=== PATIENT | female | born 1975 ===

== ENCOUNTER 2020-12-15 12:32 | Emergency (ER) | payer SELFPAY ==
[2020-12-15] MEDS ORDERED: diphenhydrAMINE 50 MG/ML SDV IVPUSH ONE (12:39)
[2020-12-15] MEDS ORDERED: methylPREDNISolone Sodium Succinate 125 MG/2 ML SDV IVPUSH ONE (12:39)
[2020-12-15] MEDS ORDERED: methylPREDNISolone Sodium Succinate 125 MG/2 ML SDV ONE (12:39)
[2020-12-15] MEDS ORDERED: diphenhydrAMINE 50 MG/ML SDV ONE (12:39)
--- NOTE | 2020-12-15 12:44 | PCM.EKG ---
#1 Interpretation EKG Date: 12/15/20 Time: 12:43 EKG Interpretation Comments: Normal sinus rhythm rate of 89 normal axis and intervals no acute ischemia QTC 431
[2020-12-15] MEDS ORDERED: Famotidine 20 MG/2 ML SDV IVPUSH STA (12:45)
--- NOTE | 2020-12-15 12:47 | EDM.PDOC ---
ED HPI GENERAL MEDICAL PROBLEM - General Chief Complaint: Allergic Reaction Stated Complaint: ALLERGIC REACTION Time Seen by Provider: 12/15/20 12:36 Source of Information: Reports: Patient History Limitations: Reports: No Limitations - History of Present Illness INITIAL COMMENTS - FREE TEXT/NARRATIVE: HISTORY AND PHYSICAL: History of present illness: Patient is a 45-year-old female who presents to the ED today with concern of hives that began 10 to 15 minutes prior to arrival to the emergency room. Patient states that she has had prior anaphylaxis so she came to the emergency room immediately to prevent this. Patient denies any throat, mouth, tongue, or lip swelling and states that at this time she is having hives and is itchy. Patient states she is also having some abdominal cramping which occurs with her hives nearly every time this happens. Patient states that she is referred to [facility] as they are unsure why she is having these reactions and states that she takes medications daily. Patient states that she is not on any steroids at this time. Patient denies fever, chills, chest pain, shortness of breath, or cough. Denies headache, neck stiff ness, change in vision, syncope, or near syncope. Denies nausea, vomiting, abdominal pain, diarrhea, constipation, or dysuria. Has not noted any blood in urine or stool. Patient has been eating and drinking appropriately. Review of systems: As per history of present illness and below otherwise all systems reviewed and negative. Past medical history: As per history of present illness and as reviewed below otherwise noncontributory. Surgical history: As per history of present illness and as reviewed below otherwise noncontributory. Social history: See social history for further information Family history: As per history of present illness and as reviewed below otherwise noncontributory. Physical exam: General: Patient is alert, oriented, and in no acute distress. Patient laying comfortably on exam table but anxious appearing. Vitals stable and reviewed by me. HEENT: No lip edema, tongue edema, or oropharyngeal edema. No stridor. Otherwise, atraumatic, normocephalic, pupils equal and reactive bilaterally, negative for conjunctival pallor or scleral icterus, mucous membranes moist, TMs normal bilaterally, throat clear, neck supple, nontender, trachea midline. No drooling or trismus noted. No meningeal signs. No hot potato voice noted. Lungs: Clear to auscultation, breath sounds equal bilaterally, chest nontender. Heart: S1S2, regular rate and rhythm without overt murmur Abdomen: Soft, nondistended, nontender. Negative for masses or hepatosplenomegaly. Negative for costovertebral tenderness. Pelvis: Stable nontender. Genitourinary: Deferred. Rectal: Deferred. Skin: Urticaria noted to the face. Otherwise, intact, warm, dry. No lesions or rashes noted. Extremities: Atraumatic, negative for cords or calf pain. Neurovascular unremarkable. Neuro: Awake, alert, oriented. Cranial nerves II through XII unremarkable. Cerebellum unremarkable. Motor and sensory unremarkable throughout. Exam nonfocal. Notes: On initial exam, patient does have urticaria noted to the left side of her face without any evidence of lip, tongue, or oropharyngeal edema. No stridor and breathing comfortably on exam. She does appear anxious but otherwise non toxic and well appearing. Patient continually reevaluated and remains vitally stable and comfortable on exam. Urticaria has now resolved and no longer visible. She expresses complete resolution of her symptoms and never has any occurrence of lip, tongue, oropharyngeal edema or stridor. Patient has an appointment with an tissue specialist at [facility] next month and discussed the importance for this follow up. Strict return precautions thoroughly discussed with patient. Voices understanding and is agreeable to plan of care. Denies any further questions or concerns at this time. Diagnostics: EKG Therapeutics: Solumedrol, Benadryl, Famotidine Prescription: Prednisone Impression: Urticaria Allergic reaction Plan: 1. Avoid triggers. Continue to monitor for possible exposures/triggers/foods. 2. While symptomatic continue to routinely take Benadryl 50mg every 4-6 hours and Zantac 150mg twice daily. Take medication as prescribed. 3. Carry your Epi-Pen with you at all times. Use in the case of an emergency and call 911 and/or present to the ER. 4. You may use topical calamine lotion, cool tempid oatmeal baths, Aveeno bath/lotions. 5. Please follow up with your Primary care provider and tissue specialist as discussed. Return to the ED as needed and as discussed. Definitive disposition and diagnosis as appropriate pending reevaluation and review of above. chest Pain Score (Numeric/FACES): 5 abdomen Pain Score (Numeric/FACES): 7 - Related Data Allergies Allergy/AdvReac Type Severity Reaction Status Date / Time metoclopramide Allergy Other Verified 12/15/20 13:34 Penicillins Allergy Hives Verified 12/15/20 12:50 dust Allergy Hives Uncoded 12/15/20 12:50 housemites Allergy Hives Uncoded 12/15/20 12:50 Home Meds: Home Meds EPINEPHrine [Epipen] 0.3 mg IM ASDIRECTED PRN 12/15/20 [History] Famotidine 20 mg PO BID 12/15/20 [History] Loratadine 10 mg PO DAILY 12/15/20 [History] metFORMIN [Glucophage XR] 500 mg PO BID 12/15/20 [History] predniSONE [Prednisone] 20 mg PO DAILY 5 Days #5 tablet 12/15/20 [Rx] ED ROS ALLERGIC REACTION - Review of Systems Review Of Systems: Comprehensive ROS is negative, except as noted in HPI. ED EXAM GENERAL NO PERIP PULSE - Physical Exam Exam: See Below (see dictation) Course - Vital Signs Last Recorded V/S: Last Vital Signs Temp 96.1 F L 12/15/20 12:34 Pulse 97 12/15/20 12:34 Resp 18 12/15/20 12:34 BP 183/99 H 12/15/20 12:34 Pulse Ox 100 12/15/20 12:34 - Orders/Labs/Meds Orders: Active Orders 24 hr Category Date Time Status Sodium Chloride 0.9% [Normal Saline] 1,000 ml Med 12/15/20 13:00 Active IV ASDIRECTED Medication Orders Sodium Chloride (Normal Saline) 1,000 mls @ 999 mls/hr IV ASDIRECTED MELONY Last Admin: 12/15/20 12:51 Dose: 999 mls/hr Documented by: HUSSAIN Meds: Medications Generic Name Dose Route Start Last Admin Trade Name Freq PRN Reason Stop Dose Admin Sodium Chloride 1,000 mls @ 999 mls/hr 12/15/20 13:00 12/15/20 12:51 Normal Saline IV 999 mls/hr ASDIRECTED MELONY Administration Discontinued Medications Generic Name Dose Route Start Last Admin Trade Name Freq PRN Reason Stop Dose Admin Diphenhydramine HCl 50 mg 12/15/20 12:39 12/15/20 12:45 Diphenhydramine 50 Mg/Ml Sdv IVPUSH 12/15/20 12:40 50 mg ONETIME ONE Administration Diphenhydramine HCl Confirm 12/15/20 12:39 12/15/20 12:48 Diphenhydramine 50 Mg/Ml Sdv Administered 12/15/20 12:40 Not Given Dose 50 mg .ROUTE .STK-MED ONE Famotidine 20 mg 12/15/20 12:45 12/15/20 12:52 Famotidine 20 Mg/2 Ml Sdv IVPUSH 12/15/20 12:46 20 mg NOW STA Administration Methylprednisolone Sodium Succinate 125 mg 12/15/20 12:39 12/15/20 12:45 Methylprednisolone Sodium Succinate 125 Mg/2 Ml Sdv IVPUSH 12/15/20 12:40 125 mg ONETIME ONE Administration Methylprednisolone Sodium Succinate Confirm 12/15/20 12:39 12/15/20 12:48 Methylprednisolone Sodium Succinate 125 Mg/2 Ml Sdv Administered 12/15/20 12:40 Not Given Dose 125 mg .ROUTE .STK-MED ONE Departure - Departure Time of Disposition: 14:14 Disposition: Home, Self-Care 01 Clinical Impression: Urticaria Allergic reaction Qualifiers: Encounter type: initial encounter Qualified Code(s): T78.40XA - Allergy, unspecified, initial encounter - Discharge Information Prescriptions: predniSONE [Prednisone] 20 mg PO DAILY 5 Days #5 tablet Forms: ED Department Discharge Additional Instructions: The following information is given to patients seen in the emergency department who are being discharged to home. This information is to outline your options for follow-up care. We provide all patients seen in our emergency department with a follow-up referral. The need for follow-up, as well as the timing and circumstances, are variable depending upon the specifics of your emergency department visit. If you don't have a primary care physician on staff, we will provide you with a referral. We always advise you to contact your personal physician following an emergency department visit to inform them of the circumstance of the visit and for follow-up with them and/or the need for any referrals to a consulting specialist. The emergency department will also refer you to a specialist when appropriate. This referral assures that you have the opportunity for follow-up care with a specialist. All of these measure are taken in an effort to provide you with optimal care, which includes your follow-up. Under all circumstances we always encourage you to contact your private physician who remains a resource for coordinating your care. When calling for follow-up care, please make the office aware that this follow-up is from your recent emergency room visit. If for any reason you are refused follow-up, please contact the [facility] Emergency Department at and asked to speak to the emergency department cecy andrews nurse. [facility] [address], [place] [address] [facility] [address] [place] [address] 1. Avoid triggers. Continue to monitor for possible exposures/triggers/foods. 2. While symptomatic continue to routinely take Benadryl 50mg every 4-6 hours and Zantac 150mg twice daily. Take medication as prescribed. 3. Carry your Epi-Pen with you at all times. Use in the case of an emergency and call 911 and/or present to the ER. 4. You may use topical calamine lotion, cool tempid oatmeal baths, Aveeno bath/lotions. 5. Please follow up with your Primary care provider and tissue specialist as discussed. Return to the ED as needed and as discussed. Sepsis Event Note (ED) - Evaluation Sepsis Screening Result: No Definite Risk - Focused Exam Vital Signs: Vital Signs Temp Pulse Resp BP Pulse Ox 12/15/20 12:34 96.1 F L 97 18 183/99 H 100 - My Orders Last 24 Hours: My Active Orders 12/15/20 13:00 Sodium Chloride 0.9% [Normal Saline] 1,000 ml IV ASDIRECTED - Assessment/Plan Last 24 Hours: My Active Orders 12/15/20 13:00 Sodium Chloride 0.9% [Normal Saline] 1,000 ml IV ASDIRECTED
[2020-12-15] MEDS ORDERED: Sodium Chloride 0.9% 1,000 ML IV SCH (13:00)
== END 2020-12-15 14:26 | disposition home or self-care (01) ==
LOC: MW.ED 12:32
DX: L50.0 Allergic urticaria (principal); Z88.8 Allergy status to other drugs, medicaments and biological substances; Z88.0 Allergy status to penicillin; Z91.038 Other insect allergy status; Z91.048 Other nonmedicinal substance allergy status; Z79.899 Other long term (current) drug therapy
CPT/HCPCS: 93005; 96374; 96375; 99283; J1200; J2930; J3490; J7030; 93010

== ENCOUNTER 2021-02-02 11:27 | Emergency (ER) | payer SELFPAY ==
[2021-02-02] MEDS ORDERED: diphenhydrAMINE 50 MG/ML SDV IVPUSH ONE (11:29)
[2021-02-02] MEDS ORDERED: Sodium Chloride 0.9% 1,000 ML IV ONE (11:29)
[2021-02-02] MEDS ORDERED: Famotidine 20 MG/2 ML SDV IVPUSH ONE (11:29)
[2021-02-02] MEDS ORDERED: methylPREDNISolone Sodium Succinate 125 MG/2 ML SDV ONE (11:30)
[2021-02-02] MEDS ORDERED: methylPREDNISolone Sodium Succinate 125 MG/2 ML SDV IVPUSH ONE (11:30)
[2021-02-02] MEDS ORDERED: Famotidine 20 MG/2 ML SDV ONE (11:30)
[2021-02-02] MEDS ORDERED: diphenhydrAMINE 50 MG/ML SDV ONE (11:30)
--- NOTE | 2021-02-02 11:44 | EDM.PDOC ---
ED HPI GENERAL MEDICAL PROBLEM - General Chief Complaint: Allergic Reaction Time Seen by Provider: 02/02/21 11:29 - History of Present Illness INITIAL COMMENTS - FREE TEXT/NARRATIVE: CHIEF COMPLAINT(S): Allergic reaction HISTORY OF PRESENT ILLNESS: This is a 45-year-old and with a past medical history of anaphylaxis and recent diagnosis of Leonard's thyroiditis who comes to the emergency department with a chief complaint of allergic reaction. The patient does not know any known triggers however approximately 20 minutes prior to arrival she started to experience a red rash to the left side of her body which was itchy and raised. She states that she did not have any throat swelling, tongue swelling, shortness of breath, stridor, drooling but states that she does feel some chest tightness. She describes the chest tightness as pressure located in the center of her chest. There is no radiation of this pressure. She denies any diaphoresis, nausea or vomiting. She denies any history of CAD or CHF. She denies any history of asthma or COPD. She states that she was seen at [facility] and they were unable to find out what is causing these reactions but she has not had any reactions in the last 2 months. REVIEW OF SYSTEMS: Constitutional: Denies fever, chills. Eyes: Denies eye pain Ears, Nose, Mouth, & Throat: Denies earache Cardiovascular: Positive for chest pressure. denies chest pain Respiratory: Denies shortness of breath Gastrointestinal: Denies Nausea, vomiting, diarrhea, hematochezia. Genitourinary: Denies hematuria Skin: Positive for itchy urticarial rash to the left side of her body MSK: Denies joint pain Neurological: Denies blurred vision Psychiatric: Denies depression PAST MEDICAL HISTORY: As per history of present illness and as reviewed below otherwise noncontributory. SURGICAL HISTORY: As per history of present illness and as reviewed below otherwise noncontributory. SOCIAL HISTORY: As per history of present illness and as reviewed below otherwise noncontributory. FAMILY HISTORY: As per history of present illness and as reviewed below otherwise noncontributory. EXAMINATION OF ORGAN SYSTEMS/BODY AREAS: Constitutional: Blood pressure, HR, RR, Temp General: Overall well-appearing woman who is in no acute distress Psychiatric: Appropriate mood and affect. Eyes: No scleral icterus or conjunctival erythema ENMT: Moist mucous membranes. No pharyngeal erythema no tongue swelling, uvular swelling. No trismus no drooling. No stridor. Cardiovascular: Regular, rate, and rhythm. No gallops, murmurs, or rubs. Bilateral upper extremity pulses symmetric and intact. No peripheral edema. No JVD. Respiratory: Lungs clear to auscultation bilaterally. No wheezes, rales, or rhonchi. No wheezing gastrointestinal: Soft, non-tender, non-distended. Normoactive bowel sounds Genitourinary: No suprapubic tenderness Musculoskeletal: Normal range of motion. Skin: There is a rash located on the left side of her face and left arm. There is no urticaria noted. Neurological: Alert, GCS 15 MEDICAL DECISION MAKING AND COURSE IN THE ED WITH INTERPRETATION/REVIEW OF DIAGNOSTIC STUDIES: This is a 45-year-old woman with a past medical history of anaphylaxis and history of Leonard's thyroiditis who comes to the emergency department with an acute itchy rash to the left side of her body associated with chest tightness. Given her history of anaphylaxis we will provide the patient with IV Solu-Medrol, famotidine, Benadryl. There is no throat or tongue swelling, no stridor and no wheezing I do not believe epinephrine is indicated at this time. We will place the patient on cardiac monitoring and pulse oximetry. Cardiac monitoring did reveal normal sinus rhythm not tachycardia and pulse oximetry with good waveform was appropriate. Given the chest pain and history of Leonard's thyroiditis we will obtain a cardiac work-up. Obtain a chest x-ray. EKG was obtained which did not reveal any acute signs of ischemia. PERC Rule Age (>/=50): No (0) HR (>/=100): No (0) SaO2 on RA <95%: No (0) Unilateral Leg Swelling: No (0) Hemoptysis: No (0) Surgery/Trauma in last month requiring general anesthesia: No (0) Prior PE or DVT: : No (0) Hormone Use: No (0) PERC negative Since patient is PERC negative and pre-test probability <15%, there is no need for more intensive workup, <2% chance of PE Heart Score History: Slightly or Non-Suspicious (0) ECG: Normal (0) Age: <45 (0) Risk Factors: 1-2 (1) Initial Troponin: </= normal limit (0) Total Score: 1 low risk Laboratory: CBC reveals a thrombocytosis of 422 otherwise unremarkable. BMP reveals hyperglycemia of 108, hypocalcemia at 8.4, magnesium was 1.8. Troponin x2 is negative. TSH and T4 normal. The radiological images were viewed by myself along with reading the report from the radiologist. Chest x-ray did not reveal any acute cardiopulmonary process. The patient was observed in the emergency department pending repeat troponin. The patient was able to tolerate p.o. without any difficulties and her rash had significantly improved/resolved. After repeat troponin was negative I did discuss with patient that she need [facility]. I did provide her information on different etiologies for angioedema and allergic reaction. The patient and I did review her records from [facility] and it appears that they have done a pretty thorough work-up with the only positive being the leukotriene being elevated and she was started on Singulair. I discussed with her that she should continue with these medications. She is to return for any new or worsening symptoms. The patient does have an EpiPen at home. DISPOSITION: The patient was discharged home in stable condition. The patient will follow up with her specialist at [facility] at their scheduled appointment CONDITION: Fair PROCEDURES: None FINAL IMPRESSION(S)/DIAGNOSES: 1. Acute allergic erythematous rash 2. Acute chest tightness, resolved Danny Wilcox M.D. chest Pain Score (Numeric/FACES): 5 - Related Data Allergies Allergy/AdvReac Type Severity Reaction Status Date / Time metoclopramide Allergy Other Verified 02/02/21 11:44 Penicillins Allergy Hives Verified 02/02/21 11:44 dust Allergy Hives Uncoded 02/02/21 11:44 housemites Allergy Hives Uncoded 02/02/21 11:44 Home Meds: Home Meds EPINEPHrine [Epipen] 0.3 mg IM ASDIRECTED PRN 12/15/20 [History] Famotidine 20 mg PO BID 12/15/20 [History] Loratadine 10 mg PO BID 12/15/20 [History] metFORMIN [Glucophage XR] 500 mg PO BID 12/15/20 [History] Levothyroxine 25 mcg PO DAILY 02/02/21 [History] Montelukast Sodium 10 mg PO BEDTIME 02/02/21 [History] Past Medical History Respiratory History: Reports: Other (See Below) Other Respiratory History: 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 for further tests Genitourinary History: Reports: None WARD ATTENDANT History: Reports: Endocrine/Metabolic History: Reports: Diabetes, Type II Dermatologic History: Reports: Other (See Below) Other Dermatologic History: vitiligo - Past Surgical History Endocrine Surgical History: Reports: None Dermatological Surgical History: Reports: None Social & Family History - Family History Family Medical History: No Pertinent Family History - Caffeine Use Caffeine Use: Reports: None ED ROS ALLERGIC REACTION - Review of Systems Review Of Systems: See Below ED EXAM GENERAL NO PERIP PULSE - Physical Exam Exam: See Below Course - Vital Signs Last Recorded V/S: Last Vital Signs Temp 36.2 C 02/02/21 11:29 Pulse 92 02/02/21 15:45 Resp 17 02/02/21 15:45 BP 146/91 H 02/02/21 15:45 Pulse Ox 97 02/02/21 15:45 - Orders/Labs/Meds Labs: Laboratory Tests 02/02/21 02/02/21 02/02/21 Range/Units 11:29 11:29 14:59 WBC 9.69 (4.0-11.0) K/uL RBC 4.73 (4.30-5.90) M/uL Hgb 13.4 (12.0-16.0) g/dL Hct 40.9 (36.0-46.0) % MCV 86.5 (80.0-98.0) fL MCH 28.3 (27.0-32.0) pg MCHC 32.8 (31.0-37.0) g/dL RDW Std Deviation 42.4 (28.0-62.0) fl RDW Coeff of Patt 13 (11.0-15.0) % Plt Count 422 H (150-400) K/uL MPV 8.60 (7.40-12.00) fL Neut % (Auto) 30.1 L (48.0-80.0) % Lymph % (Auto) 59.4 H (16.0-40.0) % Bourbon % (Auto) 7.8 (0.0-15.0) % Eos % (Auto) 2.0 (0.0-7.0) % Baso % (Auto) 0.7 (0.0-1.5) % Neut # (Auto) 2.9 (1.4-5.7) K/uL Lymph # (Auto) 5.8 H (0.6-2.4) K/uL Bourbon # (Auto) 0.8 (0.0-0.8) K/uL Eos # (Auto) 0.2 (0.0-0.7) K/uL Baso # (Auto) 0.1 (0.0-0.1) K/uL Nucleated RBC % 0.0 /100WBC Nucleated RBCs # 0 K/uL Sodium 139 (136-145) mmol/L Potassium 4.0 (3.5-5.1) mmol/L Chloride 103 (98-107) mmol/L Carbon Dioxide 24.2 (21.0-32.0) mmol/L BUN 14 (7.0-18.0) mg/dL Creatinine 0.9 (0.6-1.0) mg/dL Est Cr Clr Drug Dosing 69.60 mL/min Estimated GFR (MDRD) > 60.0 ml/min Glucose 108 H (74-106) mg/dL Calcium 8.4 L (8.5-10.1) mg/dL Magnesium 1.8 (1.8-2.4) mg/dL Troponin I < 0.050 < 0.050 (0.000-0.056) ng/mL Free T4 0.93 (0.76-1.46) ng/dL TSH 3rd Generation 3.56 (0.36-3.74) uIU/mL Meds: Medications Discontinued Medications Generic Name Dose Route Start Last Admin Trade Name Freq PRN Reason Stop Dose Admin Diphenhydramine HCl 50 mg 02/02/21 11:29 02/02/21 11:33 Diphenhydramine 50 Mg/Ml Sdv IVPUSH 02/02/21 11:30 50 mg ONETIME ONE Administration Diphenhydramine HCl Confirm 02/02/21 11:30 02/02/21 11:38 Diphenhydramine 50 Mg/Ml Sdv Administered 02/02/21 11:31 Not Given Dose 50 mg .ROUTE .STK-MED ONE Famotidine 20 mg 02/02/21 11:29 02/02/21 11:39 Famotidine 20 Mg/2 Ml Sdv IVPUSH 02/02/21 11:30 20 mg ONETIME ONE Administration Famotidine Confirm 02/02/21 11:30 02/02/21 15:49 Famotidine 20 Mg/2 Ml Sdv Administered 02/02/21 11:31 Not Given Dose 20 mg .ROUTE .STK-MED ONE Sodium Chloride 1,000 mls @ 999 mls/hr 02/02/21 11:29 02/02/21 11:32 Normal Saline IV 02/02/21 12:29 999 mls/hr .BOLUS ONE Administration Methylprednisolone Sodium Succinate 125 mg 02/02/21 11:30 02/02/21 11:34 Methylprednisolone Sodium Succinate 125 Mg/2 Ml Sdv IVPUSH 02/02/21 11:31 125 mg ONETIME ONE Administration Methylprednisolone Sodium Succinate Confirm 02/02/21 11:30 02/02/21 11:38 Methylprednisolone Sodium Succinate 125 Mg/2 Ml Sdv Administered 02/02/21 11:31 Not Given Dose 125 mg .ROUTE .STK-MED ONE Departure - Departure Time of Disposition: 15:37 Disposition: Home, Self-Care 01 Condition: Fair Clinical Impression: Allergic reaction Qualifiers: Encounter type: initial encounter Qualified Code(s): T78.40XA - Allergy, unspecified, initial encounter - Discharge Information *PRESCRIPTION DRUG MONITORING PROGRAM REVIEWED*: No *COPY OF PRESCRIPTION DRUG MONITORING REPORT IN PATIENT ROGER: No Instructions: Anaphylactic Reaction, Adult Referrals: Jaxson Albert MD [Primary Care Provider] - Forms: ED Department Discharge Additional Instructions: You evaluate today on an emergent basis. At this time your work-up was negative. You did not have any worsening of your reaction. I do recommend that you continue follow[facility]. If you have any worsening of your symptoms such as swollen lips, tongue, feel like you cannot breathe I would like you to return to the emergency department. Otherwise please follow-up at your scheduled appointment. [facility] - [facility] [address] [place] [id number] [address] [address] The patient is informed of any results of their evaluation and diagnostic workup and all questions are answered. They are given discharge instructions and return precautions. The patient is stable for discharge. The patient states they understand and agree with the plan and that they will return if their symptoms get worse or if they have any new concerns. The following information is given to patients seen in the emergency department who are being discharged to home. This information is to outline your options for follow-up care. We provide all patients seen in our emergency department with a follow-up referral. The need for follow-up, as well as the timing and circumstances, are variable depending upon the specifics of your emergency department visit. If you don't have a primary care physician on staff, we will provide you with a referral. We always advise you to contact your personal physician following an emergency department visit to inform them of the circumstance of the visit and for follow-up with them and/or the need for any referrals to a consulting specialist. The emergency department will also refer you to a specialist when appropriate. This referral assures that you have the opportunity for follow-up care with a specialist. All of these measure are taken in an effort to provide you with optimal care, which includes your follow-up. Under all circumstances we always encourage you to contact your private physician who remains a resource for coordinating your care. When calling for follow-up care, please make the office aware that this follow-up is from your recent emergency room visit. If for any reason you are refused follow-up, please contact the [facility] Emergency Department at and asked to speak to the emergency department charge nurse. Sepsis Event Note (ED) - Evaluation Sepsis Screening Result: No Definite Risk
[2021-02-02 12:03] LABS: BLOOD UREA NITROGEN,BUN 14 mg/dL (7.0-18.0); CARBON DIOXIDE,CO2 24.2 mmol/L (21.0-32.0); CHLORIDE,CL 103 mmol/L (98-107); GLUCOSE RANDOM 108 mg/dL (74-106); SODIUM,NA 139 mmol/L (136-145)
--- NOTE | 2021-02-02 12:38 | CR ---
HISTORY: Chest pain. TECHNIQUE: One view of the chest. COMPARISON: No prior. FINDINGS: There is no acute lung infiltrate or pulmonary edema. No pneumothorax or pleural effusion. Cardiac size and pulmonary vasculature are within normal limits. No acute bony abnormality. IMPRESSION: No acute disease. Dictated by Geovanny Murdock MD @ 02/02/2021 12:35:[address] Geovanny Murdock @ Feb 02 2021 12:35PM
--- NOTE | 2021-02-02 14:11 | PCM.EKG ---
#1 Interpretation EKG Date: 02/02/21 Time: 11:30 Rhythm: NSR Rate (Beats/Min): 87 Bailey: Normal P-Wave: Present QRS: Normal ST-T: Normal QT: Normal Comparison: No Change (12/15/20) EKG Interpretation Comments: Sinus Rhythm
== END 2021-02-02 15:47 | disposition home or self-care (01) ==
LOC: MW.ED 11:27
DX: R07.89 Other chest pain (principal); T50.905A Adverse effect of unspecified drugs, medicaments and biological substances, initial encounter; E11.9 Type 2 diabetes mellitus without complications; Z91.048 Other nonmedicinal substance allergy status; Z88.0 Allergy status to penicillin; Z91.09 Other allergy status, other than to drugs and biological substances; Z79.84 Long term (current) use of oral hypoglycemic drugs
CPT/HCPCS: 36415; 71045; 80048; 83735; 84439; 84443; 84484; 85025; 93005; 96374; 96375; 99284; J1200; J2930; J3490; J7030; 99283

== ENCOUNTER 2021-03-24 16:00 | Emergency (ER) | payer SELFPAY ==
[2021-03-24] MEDS ORDERED: methylPREDNISolone Sodium Succinate 125 MG/2 ML SDV IVPUSH STA (16:04)
[2021-03-24] MEDS ORDERED: diphenhydrAMINE 50 MG/ML SDV IVPUSH ONE (16:05)
[2021-03-24] MEDS ORDERED: Famotidine 20 MG Tab PO ONE (16:06)
[2021-03-24] MEDS ORDERED: Sodium Chloride 0.9% 1,000 ML IV ONE (16:16)
--- NOTE | 2021-03-24 16:21 | EDM.PDOC ---
ED HPI GENERAL MEDICAL PROBLEM - General Chief Complaint: Allergic Reaction Stated Complaint: allergic reaction/given epipen Time Seen by Provider: 03/24/21 16:08 Source of Information: Reports: Patient History Limitations: Reports: No Limitations - History of Present Illness INITIAL COMMENTS - FREE TEXT/NARRATIVE: HISTORY AND PHYSICAL: History of present illness: The patient is a 45-year-old female who comes to the emergency department with complaints of shortness of breath and itchiness after allergic reaction to an unknown substance. She took her EpiPen at about 15:51. She stated that she started to feel the chest tightness and shortness of breath for about 30 minutes and then at at 15: 43, called her neighbor who lives about 8 blocks away and she came straight over and gave the EpiPen. The patient has had numerous allergic reactions to and and sewn substance. She stated that last night she started to get stomach cramps and is unsure if this is related to it. She stated that she has been taking her famotidine on a routine basis. She has been unable to identify the substance. Patient denies any fever, chills, headache, change in vision, syncope or near syncope. Denies any chest pain, back pain, or cough. Denies any abdominal pain, nausea, vomiting, diarrhea, constipation or dysuria. Has not noted any blood in urine or stool. Review of systems: As per history of present illness and below otherwise all systems reviewed and negative. Past medical history: As per history of present illness and as reviewed below otherwise noncontributory. Surgical history: As per history of present illness and as reviewed below otherwise noncontributory. Social history: See social history for further information Family history: As per history of present illness and as reviewed below otherwise noncontributory. Physical exam: General: Well developed and well nourished. Alert and orientated x 3. Nontoxic in appearance and in no acute distress. Vital signs are stable and have been reviewed by me. Nursing notes were reviewed. HEENT: Atraumatic, normocephalic, pupils equal and reactive bilaterally, negative for conjunctival pallor or scleral icterus, mucous membranes moist, TMs normal bilaterally, throat clear, neck supple, nontender, trachea midline. No drooling or trismus noted. No meningeal signs. No hot potato voice noted. Lungs: Clear to auscultation bilaterally. No wheezes, rales, or rhonchi. Chest nontender. Normal work of breathing, no accessory muscles used. Heart: S1S2, regular rate and rhythm without overt murmur, gallops, or rubs. No JVD. No peripheral edema Abdomen: Soft, nondistended, nontender. Normoactive bowel sounds. Negative for masses or costovertebral tenderness. Skin: Intact, warm, dry. No lesions or rashes noted. Hematologic: No petechiae or purpra. Mucosa appropriate color and normal nail bed color and refill. Extremities: Atraumatic, moves all extremities per self without difficulty or deficits, negative for cords or calf pain. Neurovascular unremarkable. Neuro: Awake, alert, oriented. Cranial nerves II through XII unremarkable. Cerebellum unremarkable. Motor and sensory unremarkable throughout. Exam nonfocal. Psychiatric: Mood and affect are appropriate. Normal thought process. Answering questions appropriately. Notes: *This patient was seen and evaluated during the 2019 SARS-CoV-2 [facility] pandemic period. Community viral transmission is ongoing at time of this encounter and the emergency department is operating under pandemic response procedures. As stated above the patient is a 45-year-old female who presents to the emergency room with complaints of shortness of breath and chest tightness due to allergic reaction. She had taken her EpiPen at 15: 51 and then presented to the emergency room. The patient feels as if her tongue has tingling but upon exam I do not see any swelling. I do not see any periorbital swelling. Lung sounds are clear to auscultation. I do not see any hives. As the patient states this is her normal allergic reaction status and she is known to the ER for this I will treat her with Solu-Medrol 125 mg IV, Benadryl 50 mg IV, famotidine 40 mg p .o. to the patient taking her epi we will monitor her in the ER for two hours post epi injection. The patient is aware and is agreeable to this plan. Patient's symptoms have completely resolved and I will discharge her with a prescription for prednisone 40 mg daily for 5 days. The patient can take Benadryl 50 mg as needed for itching. And she can take famotidine 40 mg daily for 5 days. The patient states she does not even need a prescription for any more EpiPen says she has 3 at home right now. The patient was reeducated on the need to monitor her food intake and if possible keep a diary. The patient states she is already doing this. Patient is agreeable to the discharge plan I have talked with the patient about today's findings, in addition to providing specific details for plan of care. Reassessment at the time of disposition demonstrates that the patient is in no acute distress. The patient is stable for discharge, counseling was provided and we discussed in great detail signs and symptoms that would prompt them to return to the Emergency Department. Medication, follow up and supportive care measures were reviewed and discussed. Voices understanding and is agreeable to plan of care. Denies any further questions or concerns at this time. Therapeutics: Solu-Medrol 125 mg IV, Benadryl 50 mg IV, famotidine 40 mg p.o. Impression: Allergic reaction Plan: 1. You were evaluated today on an emergent basis. Your allergic reaction was treated with a steroid, Benadryl, and famotidine. You were monitored in the emergency department for 2 hours after you gave the epi injection at home. I will prescribe prednisone 40 mg daily for 5 days. You can take Benadryl 50 as needed for itching. And famotidine 40 mg daily for 5 days, this is [id number]. You said that you had 3 more epipens at home. Continue to monitor what you ingest and what you might be exposed to. Always return to the emergency department as needed. 2. You can alternate Tylenol and ibuprofen as needed for pain and fever management. 3. We encourage you to follow up with your primary care provider and/or recommended specialist in the next few days for re-evaluation and further care/management. 4. If your symptoms should worsen, new symptoms develop or any of the signs and symptoms we discussed should arise please return to the emergency room or call 911 (if needed). Definitive disposition and diagnosis as appropriate pending reevaluation and review of above. - Related Data Allergies Allergy/AdvReac Type Severity Reaction Status Date / Time metoclopramide Allergy Other Verified 03/24/21 16:07 Penicillins Allergy Hives Verified 03/24/21 16:07 dust Allergy Hives Uncoded 03/24/21 16:07 housemites Allergy Hives Uncoded 03/24/21 16:07 Home Meds: Home Meds EPINEPHrine [Epipen] 0.3 mg IM ASDIRECTED PRN 12/15/20 [History] Famotidine 20 mg PO BID 12/15/20 [History] Loratadine 10 mg PO BID 12/15/20 [History] metFORMIN [Glucophage XR] 500 mg PO BID 12/15/20 [History] Montelukast Sodium 10 mg PO BEDTIME 02/02/21 [History] Past Medical History Respiratory History: Reports: Other (See Below) Other Respiratory History: hx of multiple allergic reactions to unknown substance Genitourinary History: Reports: 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: Endocrine/Metabolic History: Reports: Diabetes, Type II, Other (See Below) Other Endocrine/Metabolic History: [place]osh[place] Dermatologic History: Reports: Other (See Below) Other Dermatologic History: vitiligo - Past Surgical History Respiratory Surgical History: Reports: None Endocrine Surgical History: Reports: None Dermatological Surgical History: Reports: None Social & Family History - Family History Family Medical History: No Pertinent Family History - Tobacco Use Tobacco Use Status *Q: Never Tobacco User - Caffeine Use Caffeine Use: Reports: None - Recreational Drug Use Recreational Drug Use: No ED ROS ALLERGIC REACTION - Review of Systems Review Of Systems: Comprehensive ROS is negative, except as noted in HPI. ED EXAM GENERAL NO PERIP PULSE - Physical Exam Exam: See Below (See dictation) Course - Vital Signs Last Recorded V/S: Last Vital Signs Temp 98.0 F 03/24/21 18:00 Pulse 74 03/24/21 18:00 Resp 18 03/24/21 18:00 BP 144/74 H 03/24/21 18:00 Pulse Ox 98 03/24/21 18:00 - Orders/Labs/Meds Meds: Medications Discontinued Medications Generic Name Dose Route Start Last Admin Trade Name Freq PRN Reason Stop Dose Admin Diphenhydramine HCl 50 mg 03/24/21 16:03/24/21 16:13 Diphenhydramine 50 Mg/Ml Sdv IVPUSH 03/24/21 16:06 50 mg ONETIME ONE Administration Famotidine 40 mg 03/24/21 16:06 03/24/21 16:13 Famotidine 20 Mg Tab PO 03/24/21 16:07 40 mg ONETIME ONE Administration Sodium Chloride 1,000 mls @ 999 mls/hr 03/24/21 16:16 03/24/21 16:20 Normal Saline IV 03/24/21 17:16 999 mls/hr .BOLUS ONE Administration Methylprednisolone Sodium Succinate 125 mg 03/24/21 16:04 03/24/21 16:13 Methylprednisolone Sodium Succinate 125 Mg/2 Ml Sdv IVPUSH 03/24/21 16:05 125 mg STAT STA Administration Departure - Departure Time of Disposition: 17:51 Disposition: Home, Self-Care 01 Condition: Good Clinical Impression: Allergic reaction Qualifiers: Encounter type: initial encounter Qualified Code(s): T78.40XA - Allergy, unspecified, initial encounter - Discharge Information *PRESCRIPTION DRUG MONITORING PROGRAM REVIEWED*: Not Applicable *COPY OF PRESCRIPTION DRUG MONITORING REPORT IN PATIENT ROGER: Not Applicable Instructions: Allergies, Adult, [id number] Referrals: PCP,None [Primary Care Provider] - Forms: ED Department Discharge Additional Instructions: The following information is given to patients seen in the emergency department who are being discharged to home. This information is to outline your options for follow-up care. We provide all patients seen in our emergency department with a follow-up referral. The need for follow-up, as well as the timing and circumstances, are variable depending upon the specifics of your emergency department visit. If you don't have a primary care physician on staff, we will provide you with a referral. We always advise you to contact your personal physician following an emergency department visit to inform them of the circumstance of the visit and for follow-up with them and/or the need for any referrals to a consulting specialist. The emergency department will also refer you to a specialist when appropriate. This referral assures that you have the opportunity for follow-up care with a specialist. All of these measure are taken in an effort to provide you with optimal care, which includes your follow-up. Under all circumstances we always encourage you to contact your private physician who remains a resource for coordinating your care. When calling for follow-up care, please make the office aware that this follow-up is from your recent emergency room visit. If for any reason you are refused follow-up, please contact the [facility] Emergency Department at and asked to speak to the emergency department charge nurse. [facility] [address] [place] [id number] [facility] [address] [place] [address] Plan: 1. You were evaluated today on an emergent basis. Your allergic reaction was treated with a steroid, Benadryl, and famotidine. You were monitored in the emergency department for 2 hours after you gave the epi injection at home. I will prescribe prednisone 40 mg daily for 5 days. You can take Benadryl 50 as needed for itching. And famotidine 40 mg daily for 5 days, this is [id number]. You said that you had 3 more epipens at home. Continue to monitor what you ingest and what you might be exposed to. Always return to the emergency department as needed. 2. You can alternate Tylenol and ibuprofen as needed for pain and fever management. 3. We encourage you to follow up with your primary care provider and/or recommended specialist in the next few days for re-evaluation and further care/management. 4. If your symptoms should worsen, new symptoms develop or any of the signs and symptoms we discussed should arise please return to the emergency room or call 911 (if needed). Sepsis Event Note (ED) - Evaluation Sepsis Screening Result: No Definite Risk - Focused Exam Vital Signs: Vital Signs Temp Pulse Resp BP Pulse Ox 03/24/21 18:00 98.0 F 74 18 144/74 H 98 03/24/21 17:11 74 18 130/74 98 03/24/21 16:25 98.0 F 88 18 130/97 H 98 03/24/21 16:04 97.8 F 99 133/100 H 100
== END 2021-03-24 18:06 | disposition home or self-care (01) ==
LOC: MW.ED 16:00
DX: T78.40XA Allergy, unspecified, initial encounter (principal); Z88.0 Allergy status to penicillin; Z91.048 Other nonmedicinal substance allergy status; Z88.8 Allergy status to other drugs, medicaments and biological substances; E11.9 Type 2 diabetes mellitus without complications; Z79.84 Long term (current) use of oral hypoglycemic drugs
CPT/HCPCS: 96374; 96375; 99284; A9270; J1200; J2930; J7030; 99283